=== PATIENT | male | born 1955 | race Caucasian/White ===

== ENCOUNTER 2021-07-21 22:44 | Emergency (ER) | payer OTHER ==
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
[2021-07-21] MEDS ORDERED: XYLOCAINE 1% HCL 20 ML MDV ONE (23:07)
[2021-07-21] MEDS ORDERED: XYLOCAINE 1% HCL 20 ML MDV IJ ONE (23:17)
[2021-07-21] MEDS ORDERED: Adacel Vial IM ONE ×2 (23:17→23:24)
[2021-07-21] MEDS ORDERED: BACIGUENT PACKET TP ONE (23:17)
[2021-07-21 23:22] VITALS: BP 147/95; PULSE 103; O2SAT 94
[2021-07-21] MEDS ORDERED: BACIGUENT PACKET ONE (23:24)
== END 2021-07-21 23:36 | disposition home or self-care (01) ==
LOC: ED 22:44
DX: S61.411A Laceration without foreign body of right hand, initial encounter (principal)
CPT/HCPCS: 12001; 90471; 90715; 96372; 99283; A9270-GY

== ENCOUNTER 2023-01-23 18:52 | Emergency (ER) | payer OTHER ==
[2023-01-23 20:11] VITALS: BP 140/81; PULSE 79; O2SAT 97
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
== END 2023-01-23 22:39 | disposition home or self-care (01) ==
LOC: ED 18:52
DX: S00.03XA Contusion of scalp, initial encounter (principal); S93.401A Sprain of unspecified ligament of right ankle, initial encounter; V84.5XXA Driver of special agricultural vehicle injured in nontraffic accident, initial encounter; Y92.64 Mine or pit as the place of occurrence of the external cause; Y99.0 Civilian activity done for income or pay; E78.5 Hyperlipidemia, unspecified; I10 Essential (primary) hypertension
CPT/HCPCS: 70450; 72125; 73590; 73610; 99285